=== PATIENT | male | born 1970 | race African-American/Black ===

== ENCOUNTER 2022-04-10 17:10 | Emergency (ER) | payer SELFPAY ==
[2022-04-10 17:17] VITALS: BP 140/90; PULSE 63; RESP 18; TEMP 97; BMI 35.2
[2022-04-10] MEDS ORDERED: LIDOCAINE 5% TOPICAL PATCH TP ONE (18:00)
[2022-04-10] MEDS ORDERED: diazePAM 5 MG TABLET PO ONE (18:00)
[2022-04-10] MEDS ORDERED: KETOROLAC TROMETHAMINE 30 MG/1 ML VIAL IM ONE (18:00)
[2022-04-10] MEDS ORDERED: KETOROLAC TROMETHAMINE 30 MG/1 ML VIAL ONE (18:35)
[2022-04-10] MEDS ORDERED: LIDOCAINE 5% TOPICAL PATCH ONE (18:35)
[2022-04-10] MEDS ORDERED: diazePAM 5 MG TABLET ONE (18:35)
[2022-04-10] MEDS ORDERED: LIDOCAINE PATCH REMOVAL MC SCH (22:00)
== END 2022-04-10 20:38 | disposition home or self-care (01) ==
LOC: JERFT 17:10
DX: M54.50 Low back pain, unspecified (principal)
CPT/HCPCS: 99283-25

== ENCOUNTER 2023-02-11 19:45 | Emergency (ER) | payer OTHER ==
[2023-02-11 19:54] VITALS: BP 133/94; PULSE 66; RESP 16; TEMP 98.7; BMI 34.7
== END 2023-02-11 21:06 | disposition home or self-care (01) ==
LOC: FER 19:45
DX: S50.311A Abrasion of right elbow, initial encounter (principal); S09.90XA Unspecified injury of head, initial encounter; R42 Dizziness and giddiness; W01.198A Fall on same level from slipping, tripping and stumbling with subsequent striking against other object, initial encounter
CPT/HCPCS: 70450-TC; 99284-25

== ENCOUNTER 2024-09-09 11:31 | Emergency (ER) | payer OTHER ==
[2024-09-09 11:34] VITALS: TEMP 98.8; BMI 34.2
[2024-09-09 12:54] LABS: ABSOLUTE IMMATURE GRANULOCYTES 0.02 x10^3/uL (0.0-0.031); MEAN CELL VOLUME 73.7 fl (79.0-92.2); RDW 14.5 % (12.2-16.1)
[2024-09-09 12:56] LABS: BASOPHILS # 0.06 x10^3/uL (0.01-0.08); EOSINOPHIL % 1.6 % (0.8-7.0); MEAN PLT VOLUME 10.8 fl (9.4-12.4); MONOCYTE # 0.77 x10^3/uL (0.30-0.82); MONOCYTE % 12.6 % (5.3-12.2); PLATELET COUNT 271 x10^3/uL (163-337)
[2024-09-09 13:15] LABS: POTASSIUM 4.3 mmol/L (3.5-5.1)
[2024-09-09 13:19] LABS: ALBUMIN 3.6 g/dl (3.4-5.0); BLOOD UREA NITROGEN 12.6 mg/dL (7-18); CALCIUM 9.4 mg/dL (8.5-10.1); MAGNESIUM 2.3 mg/dL (1.8-2.4)
[2024-09-09 13:22] LABS: CREATININE 1.1 mg/dL (0.55-1.3)
[2024-09-09 13:24] LABS: BILIRUBIN,TOTAL 0.7 mg/dL (0.2-1); TOT PROT 7.2 g/dl (6.4-8.2)
[2024-09-09 13:27] LABS: N-TERMINAL BNP 6.4 pg/ml (5-125)
[2024-09-09 14:12] LABS: HIV INTERPRETATION NEGATIVE (NEGATIVE)
[2024-09-09 14:13] LABS: HCV DIAGNOSTIC IN-HOUSE W/RFLX NON-REACTIVE (NONREACTIVE)
[2024-09-09 16:37] VITALS: BP 140/86; PULSE 67; RESP 18
== END 2024-09-09 16:40 | disposition home or self-care (01) ==
LOC: JER 11:31
DX: R07.89 Other chest pain (principal); N20.0 Calculus of kidney; I10 Essential (primary) hypertension; M79.89 Other specified soft tissue disorders
CPT/HCPCS: 36415; 71045-TC-FY; 71275-TC; 80053; 83690; 83735; 83880; 84484; 85025; 85379; 86803; 87389; 93005; 93010; 99285-25; Q9967